=== PATIENT | female | born 1965 | race Caucasian/White ===

== ENCOUNTER → 2023-01-15 | Outpatient (CLI) | payer OTHER ==
--- NOTE | 2023-01-15 18:45 | Diagnostic Imaging Report ---
CLINICAL INDICATION: Patient with lumbar pain. EXAM: X-ray of the lumbar spine, 3 views. COMPARISON: None. FINDINGS: There is no acute lumbar spine fracture or dislocation. There is lower lumbar spine facet arthropathy. There are degenerative spurs involving the lumbar spine. There is mild loss of disk space height at the L3-L4 level. IMPRESSION: There is lumbar spine degenerative disease with no acute fracture or dislocation. Dictated by: Dictated on workstation # [id number]
== END ==
LOC: RAD 18:11
PROVIDERS: ATTEND Chiropractor
DX: M47.816 Spondylosis without myelopathy or radiculopathy, lumbar region (principal)
CPT/HCPCS: 72100

== ENCOUNTER 2023-02-19 08:27 | Outpatient (RCR) | payer OTHER | END 2023-03-02 | disposition home or self-care (01) | DX: M54.50 Low back pain, unspecified (principal); M79.651 Pain in right thigh ==

== ENCOUNTER → 2023-04-02 | Outpatient (RCR) | payer OTHER | END | disposition home or self-care (01) | DX: M79.651 Pain in right thigh (principal) ==

== ENCOUNTER 2023-05-21 11:32 | Outpatient (RCR) | payer OTHER | END 2023-06-02 | disposition home or self-care (01) | DX: M79.651 Pain in right thigh (principal); M54.50 Low back pain, unspecified ==